=== PATIENT | female | born 1950 | race Caucasian/White ===

== ENCOUNTER → 2018-06-17 | Outpatient (CLI) | payer OTHER ==
[~2018-06-17] MED LIST: CLON1; LAMO100; SERT100
== END ==
LOC: LAB SHORT 11:45 → LAB EV 11:45
DX: N39.0 Urinary tract infection, site not specified (principal)
CPT/HCPCS: 87077; 87086; 87186

== ENCOUNTER → 2020-10-21 | Outpatient (CLI) | payer MEDICARE | END | disposition home or self-care (01) | LOC: LAB SHORT 12:00 | DX: R30.9 Painful micturition, unspecified (principal) | CPT/HCPCS: 87077; 87086; 87186 ==

== ENCOUNTER 2024-07-09 12:11 | Emergency (ER) | payer MEDICARE ==
[~2024-07-09] VITALS: Ht 165.1 cm; Wt 99.8 kg
[2024-07-09 13:10] LABS: BASOPHILS ABSOLUTE AUTO 0.05 K/mm3 (0.00-0.23); BASOPHILS PERCENT AUTO 1 % (0-2); EOSINOPHILS ABSOLUTE AUTO 0.21 K/mm3 (0.00-0.68); EOSINOPHILS PERCENT AUTO 2 % (0-6); Hematocrit 38.9 % (33.0-51.0); Hemoglobin 13.2 g/dL (11.5-16.0); IMMATURE GRAN ABSOLUTE AUTO 0.04 K/mm3 (0.00-0.10); IMMATURE GRAN PERCENT AUTO 1 % (0-1); LYMPHOCYTES ABSOLUTE AUTO 1.94 K/mm3 (0.84-5.20); LYMPHOCYTES PERCENT AUTO 22 % (21-46); MONOCYTES ABSOLUTE AUTO 0.54 K/mm3 (0.16-1.47); MONOCYTES PERCENT AUTO 6 % (4-13); Mean Corpuscular HGB Conc 33.9 g/dL (31.5-36.5); Mean Corpuscular Volume 91 fL (80-100); Mean Platelet Volume 9.7 fL (9.1-12.4); NEUTROPHILS ABSOLUTE AUTO 6.09 K/mm3 (1.96-9.15); NEUTROPHILS PERCENT AUTO 69 % (41-73); Platelet Count 296 K/mm3 (150-400); RDW Coefficient Variation 12.7 % (11.7-14.2); RDW Standard Deviation 42.6 fL (35.1-46.3); Red Blood Cell Count 4.26 M/mm3 (3.80-5.20); White Blood Cell Count 8.87 K/mm3 (4.00-11.30)
[2024-07-09 14:13] LABS: Albumin, Blood 3.4 g/dL (3.4-5.0); Albumin/Globulin Ratio 0.9 (0.8-1.8); Bilirubin, Total 0.4 mg/dL (0.1-1.0); Bun/Creatinine Ratio 14.8 (12.0-20.0); Calcium, Blood 8.8 mg/dL (8.5-10.1); Creatinine, Blood 0.88 mg/dL (0.40-1.00); Globulin, Blood 3.7 g/dL (2.2-4.0); Magnesium, Blood 1.3 mg/dL (1.6-2.4); Phosphorus, Blood 3.7 mg/dL (2.5-4.9); Potassium, Blood 2.8 mmol/L (3.5-5.5); Total Protein, Blood 7.1 g/dL (6.4-8.2)
[2024-07-09] MEDS ORDERED: Potassium Chloride 40 MEQ in NS 250 ML IV ONE (15:20)
[2024-07-09] MEDS ORDERED: Potassium Chloride 20 MEQ TabCR PO ONE (15:20)
[2024-07-09] MEDS ORDERED: Magnesium Sulf 2 GM/Water 50ML 50 ML IV ONE (15:40)
[2024-07-09] MEDS ORDERED: NS 1,000 ML IV ONE (15:59)
[2024-07-09] MEDS ORDERED: NS 1,000 ML IV SCH (16:00)
[2024-07-09] MEDS ORDERED: DULO30 (16:59)
[2024-07-09] MEDS ORDERED: LOSA50 (16:59)
[2024-07-09] MEDS ORDERED: LEVSOD100 (17:00)
[2024-07-09] MEDS ORDERED: OMEP20ER (17:00)
[2024-07-09] MEDS ORDERED: Diamox500 MG (17:01)
[2024-07-09] MEDS ORDERED: TIZA4 (17:01)
[2024-07-09] MEDS ORDERED: GABA300 (17:01)
[2024-07-09] MEDS ORDERED: AMLO5 (17:02)
[2024-07-09] MEDS ORDERED: HYDCHL25 (17:02)
[2024-07-09] MEDS ORDERED: Seroquel Xr50 MG (17:03)
[2024-07-09 20:14] VITALS: BP 103/82
[2024-07-09 20:20] LABS: Calcium, Ionized (POC) 1.11 mmol/L (1.10-1.46); Chloride (POC) 102 mmol/L (98-108); Creatinine (POC) 0.9 mg/dL (0.6-1.0); Glucose (ISTAT POC) 93 mg/dL (70-99); Hemoglobin (POC) 12.2 g/dL (12.0-16.0); Potassium (POC) 3.4 mmol/L (3.5-5.5); Sodium (POC) 139 mmol/L (135-148); Total CO2 (POC) 27 mmol/L (21-32)
== END 2024-07-09 20:14 | disposition home or self-care (01) ==
LOC: ER 12:11
PROVIDERS: Physician Assistant; Student in an Organized Health Care Education/Training Program
DX: E87.6 Hypokalemia (principal); E83.42 Hypomagnesemia; K21.9 Gastro-esophageal reflux disease without esophagitis; E03.9 Hypothyroidism, unspecified; I10 Essential (primary) hypertension; E78.5 Hyperlipidemia, unspecified; J45.909 Unspecified asthma, uncomplicated; Z79.899 Other long term (current) drug therapy; Z88.0 Allergy status to penicillin; Z88.5 Allergy status to narcotic agent
CPT/HCPCS: 80047; 80053; 83735; 84100; 85014; 85025; 93005; 93010; 96365; 96366; 96368; 99285-25; A9270; J3475; J3480; J7030; J7050

== ENCOUNTER 2024-07-24 03:02 | Day surgery (SDC) | payer MEDICARE ==
[~2024-07-24 03:02] MED LIST changes: +AMLO5; +DULO30; +Diamox500 MG; +GABA300; +HYDCHL25; +LEVSOD100; +LOSA50; +OMEP20ER; +Seroquel Xr50 MG; +TIZA4
[2024-07-24 14:54] VITALS: BP 107/59
== END 2024-07-24 17:06 | disposition home or self-care (01) ==
LOC: ATC 03:02
DX: E87.6 Hypokalemia (principal); E78.2 Mixed hyperlipidemia; J45.909 Unspecified asthma, uncomplicated; I10 Essential (primary) hypertension; E03.9 Hypothyroidism, unspecified; K21.9 Gastro-esophageal reflux disease without esophagitis; G47.33 Obstructive sleep apnea (adult) (pediatric); Z88.5 Allergy status to narcotic agent; Z88.8 Allergy status to other drugs, medicaments and biological substances; Z79.899 Other long term (current) drug therapy
CPT/HCPCS: 96365; 96366; J3480; J7040